=== PATIENT | male | born 1995 | race Caucasian/White ===

== ENCOUNTER 2024-01-27 11:06 | Emergency (ER) | payer SELFPAY ==
[2024-01-27 11:13] VITALS: BP 157/103
--- NOTE | 2024-01-27 12:29 | ED.GENMED ---
History of Present Illness
General
Chief Complaint: Anxiety
Source: patient
Exam Limitations: none
Time Seen by Provider: 01/27/24 11:30
Nursing documentation reviewed up to this point in time: agreed with
History of Present Illness
History of Present Illness:
29 y/o M with h/o anxiety, some previous paranoia and delusions and concerns for possible schizophrenia in 2018, 1 psych hospitalization
here with concerns for anxiety causing him to have to leave his job 1 week ago
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
he doesn't feel overwhelmed outside of work too much
used to use mariuana to help with his symptoms but then was having side effects
no si/hi, no ivda, no alcohol,
has no medical insurance
Past History
Past History
ED Past Medical History: Psychiatric (ADHD)
Social History
Tobacco: Smoker
Drug: None
Review of Systems
Review of Systems
Allergies reviewed?: Yes
All Other Systems: Not applicable
Phy Exam
Physical Exam
Physical Exam:
GENERAL: Alert , in no apparent distress, calm cooperative
ENT: o/p clr, mmm.
CARDIAC: Regular rate and rhythm .
LUNGS: Clear breath sounds bilaterally, no acute respiratory distress, no wheezes/rales/rhonchi
ABDOMEN: Soft, without focal tenderness, no r/g, no cvat, normal bowel sounds
NEUROLOGICAL: Alert and oriented, no focal neuro deficits
SKIN: Warm and dry, skin intact.
MUSCULOSKELETAL: No edema, well perfused. neg vinicius's sign
PSYCH: Normal and appropriate interaction. no SI, no hallucinations
Course
Orders/Labs/Results
Orders:
Orders
01/27/24 11:45
Crisis Consult Urgent
Reason for Consult: anxiety
Vital Signs
Initial and Last Documented VS:
Initial Vital Signs
Temp Pulse Resp BP Pulse Ox
98.1 F 69 20 157/103 98
01/27/24 11:13 01/27/24 11:13 01/27/24 11:13 01/27/24 11:13 01/27/24 11:13
Last Documented Vital Signs
Temp Pulse Resp BP Pulse Ox
98.1 F 69 20 157/103 98
01/27/24 11:13 01/27/24 11:13 01/27/24 11:13 01/27/24 11:13 01/27/24 11:13
MDM/Problems Addressed
Differential Diagnosis Includes:
anxiety, deperession, stress, paranoia
MDM/Problems Addressed:
29 y/o M with h/o paranoia previously thought to possibly be schizophrenia in 2018 but pt says he does not carry that diagnosis
having anxiety that is affecting his abiltiy to work
requesting resources
contracts for safety
no medical concerns
no SI
no hallucinations
medical screening exam complete
sent for crisis consult.
*Critical Care Note
Total Time (30-74mins, 75-104mins- exclusive of procedures): Not Applicable
ED Attending Note
-
Portions of this chart may have been created with voice recognition software.� Occasional wrong word or��sound alike� substitutions may have occurred due to the inherent limitations of voice recognition software.
Discharge Plan
Departure
Patient Disposition: [facility]
Date of Disposition: 01/27/24
Time of Disposition: 12:01
Patient with high blood pressure during this ER visit?: Yes
Condition: Fair
Covid-19: Not Applicable
Discharge Problem:
Anxiety
Instructions: Anxiety, Adult (DC)
Prescriptions:
No Action
acetaminophen 325 MG tablet
650 mg PO Q6HPRN PRN (Reason: MILD PAIN) Qty: 1 0RF
lidocaine HCl [Lidocaine Viscous] 90 ML solution
5 ml PO QID Qty: 1 0RF
nicotine 21 MG patch 24 hour
21 mg transdermal DAILY Qty: 30 0RF
aripiprazole 10 MG tablet
10 mg PO HS Qty: 30 0RF
asenapine maleate 5 MG tablet, sublingual
5 mg sublingual Q8HPRN PRN (Reason: agitation) Qty: 90 0RF
Referrals:
NONE,* [Family Provider] -
Activity Restrictions/Additional Instructions:
GO DIRECTLY TO THE [facility]ISIS [facility] FOR FURTHER EVLAUATION
Interventions
Interventions:
*Risk Screen - Suicide Last Done: 01/27/24 11:13
*General Assessment Last Done: 01/27/24 11:13
*Neglect/Abuse Screening Last Done: 01/27/24 11:13
*Nursing Disposition Last Done: 01/27/24 12:05
Discharge Date and Time
Discharge Date/Time: 01/27/24 12:05
Print Language: BOLIVIAN
== END 2024-01-27 12:05 ==
LOC: EMR 11:06
PROVIDERS: EMERGENCY PHYSICIAN Emergency Medicine
DX: F41.9 Anxiety disorder, unspecified (principal); F22 Delusional disorders; R03.0 Elevated blood-pressure reading, without diagnosis of hypertension; F90.9 Attention-deficit hyperactivity disorder, unspecified type; J45.909 Unspecified asthma, uncomplicated; F17.200 Nicotine dependence, unspecified, uncomplicated; Z91.51 Personal history of suicidal behavior
CPT/HCPCS: 99282